=== PATIENT | male | born 1995 | race Caucasian/White ===

== ENCOUNTER → 2017-03-12 | Outpatient (CLI) | payer OTHER ==
--- NOTE | 2017-03-12 20:06 | DIAGNOSTIC IMAGING REPORT ---
RIGHT CLAVICLE CLINICAL HISTORY: Right clavicle injury. COMPARISON: None FINDINGS: Alignment of the right acromioclavicular and glenohumeral joints is anatomic. No acute fracture of the right clavicle is identified. IMPRESSION: No acute fracture of the right clavicle. Electronically signed by: Felipe Tan M.D. 03/12/2017 8:04 PM Dictated Date/Time: 03/12/2017 8:03 PM
--- NOTE | 2017-03-12 20:07 | DIAGNOSTIC IMAGING REPORT ---
CHEST 2 VIEWS ROUTINE CLINICAL HISTORY: Right clavicle injury. COMPARISON STUDY: No previous studies for comparison. FINDINGS: There is no pneumothorax or pleural effusion. Lungs are clear. Cardiac size is normal. Mediastinal contours are normal. There is no evidence of pulmonary edema. IMPRESSION: No acute cardiopulmonary findings. Electronically signed by: Felipe Tan M.D. 03/12/2017 8:05 PM Dictated Date/Time: 03/12/2017 8:05 PM
== END | disposition home or self-care (01) ==
LOC: C.RAD 19:13
PROVIDERS: ATTEND Family Medicine
DX: S49.91XA Unspecified injury of right shoulder and upper arm, initial encounter (principal); X58.XXXA Exposure to other specified factors, initial encounter

== ENCOUNTER 2017-08-12 03:39 | Emergency (ER) | payer OTHER ==
[~2017-08-12] VITALS: Ht 177.8 cm; Wt 88.0 kg
[2017-08-12 03:42] VITALS: TEMP 36.6; Ht 177.8 cm; Wt 88.0 kg
[2017-08-12] MEDS ORDERED: METOCLOPRAMIDE HCL INJ 5 MG/ML 2 ML VIAL IV STA (03:48)
[2017-08-12] MEDS ORDERED: DiphenhydrAMINE HCL 50 MG/ML VIAL IV STA (03:48)
[2017-08-12] MEDS ORDERED: SODIUM CHLORIDE 0.9% 1000ML 1,000 ML IV STA (04:00)
[2017-08-12 04:10] LABS: BASO % 0.5 %; BASO ABS # 0.04 K/uL (0-0.2); EOS % 1.8 %; EOS ABS # 0.16 K/uL (0-0.5); HEMATOCRIT 46.1 % (42-52); IG# 0.08 K/uL (0.00-0.02); LYMPH % 21.9 %; LYMPH ABS # 1.91 K/uL (1.2-3.4); MEAN CELL VOLUME 90.6 fL (80-100); MEAN CORPUSCULAR HEMOGLOBIN 31.4 pg (25-34); MEAN CORPUSCULAR HGB CONC 34.7 g/dl (32-36); MEAN PLATELET VOLUME 9.7 fL (7.4-10.4); MONO % 10.9 %; MONO ABS # 0.95 K/uL (0.11-0.59); NEUT ABS # 5.58 K/uL (1.4-6.5); PLATELET COUNT 260 K/uL (130-400); RED CELL DISTRIBUTION WIDTH CV 12.6 % (11.5-14.5); RED CELL DISTRIBUTION WIDTH SD 41.9 fL (36.4-46.3); WHITE BLOOD COUNT 8.72 K/uL (4.8-10.8)
[2017-08-12 04:28] LABS: CALCIUM 9.3 mg/dl (8.5-10.1); CREATININE 1.15 mg/dl (0.60-1.40); POTASSIUM 3.8 mmol/L (3.5-5.1)
--- NOTE | 2017-08-12 05:28 | EMERGENCY ROOM VISIT NOTE ---
History First contact with patient: 03:45 Chief Complaint: HEADACHE Stated Complaint: MIGRAINE,NAUSEA History of Present Illness The patient is a 21 year old male who presents to the Emergency Room with complaints of headache with nausea for the past few hours. Patient states he is getting ready for bed and started with a frontal headache described as throbbing, ranging in severity currently 7 out of 10. Nothing makes it better or worse. He feels nauseous with photophobia. No history of migraines. Patient drinks of alcohol yesterday but nothing tonight. No drugs tonight. No recent head injury. 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 No family history of aneurysm or sudden . No history of migraines. Patient denies chest pain, dyspnea, localized weakness, vision problems, cold symptoms, sore throat, neck stiffness , dizziness. Review of Systems An 10 system review of systems was completed with positives and pertinent negatives listed in the HPI. Past Medical/Surgical History None Social History Smoking Status: Never Smoker Alcohol Use: occasionally Drug Use: none Marital Status: in relationship Occupation Status: [employer] student Current/Historical Medications No Active Prescriptions or Reported Meds Physical Exam Vital Signs Date Time Temp Pulse Resp B/P (MAP) Pulse Ox O2 Delivery O2 Flow Rate FiO2 08/12/17 03:42 36.6 63 18 154/98 98 Room Air Physical Exam VITALS: Vitals are noted on the nurse's note and reviewed by myself. Vital signs hypertensive GENERAL: Pleasant male ambulating without difficulties, in no acute distress, nondiaphoretic, well-developed well-nourished. SKIN: The skin was without rashes, erythema, edema, or bruising. There is no tenting of the skin. Capillary reflex less than 2 seconds. HEAD: Normocephalic atraumatic. EARS: External auditory canals clear, tympanic membranes pearly mcmahan without erythema or effusion bilaterally. EYES: Pupils equal round and reactive to light and accommodation. Conjunctivae without injection, sclerae without icterus. Extraocular movements intact. NOSE: Patent, turbinates without inflammation or discharge. No sinus tenderness. MOUTH: Mucous membranes moist. Pharynx without erythema or exudate. Uvula midline. Airway patent. Tongue does not deviate. NECK: Supple without nuchal rigidity. No lymphadenopathy. No thyromegaly. Cervical spine is nontender. No JVD. HEART: Regular rate and rhythm without murmurs gallops or rubs. LUNGS: Clear to auscultation bilaterally without wheezes, rales or rhonchi. No dullness to percussion. No retractions or accessory muscle use. ABDOMEN: Positive bowel sounds x 4. Normal tympanic percussion. Soft, nontender, without masses or organomegaly. Kirk sign negative. No guarding or rebound tenderness. MUSCULOSKELETAL: No muscle atrophy, erythema, or edema noted. NEURO: Patient was alert and oriented to person place and time. Normal sensation to light and sharp touch. Cranial nerves II through XII grossly intact. No prior drift. Salivary exam intact. No focal neurological deficits. Medical Decision & Procedures Laboratory Results 08/12/17 04:01 Red Blood Count 5.09, Mean Corpuscular Volume 90.6, Mean Corpuscular Hemoglobin 31.4, Mean Corpuscular Hemoglobin Concent 34.7, Mean Platelet Volume 9.7, Neutrophils (%) (Auto) 64.0, Lymphocytes (%) (Auto) 21.9, Monocytes (%) (Auto) 10.9, Eosinophils (%) (Auto) 1.8, Basophils (%) (Auto) 0.5, Neutrophils # (Auto ) 5.58, Lymphocytes # (Auto) 1.91, Monocytes # (Auto) 0.95, Eosinophils # (Auto ) 0.16, Basophils # (Auto) 0.04 08/12/17 04:01 Test 08/12/17 04:01 White Blood Count 8.72 K/uL (4.8-10.8) Red Blood Count 5.09 M/uL (4.7-6.1) Hemoglobin 16.0 g/dL (14.0-18.0) Hematocrit 46.1 % (42-52) Mean Corpuscular Volume 90.6 fL (80-100) Mean Corpuscular Hemoglobin 31.4 pg (25-34) Mean Corpuscular Hemoglobin Concent 34.7 g/dl (32-36) Platelet Count 260 K/uL (130-400) Mean Platelet Volume 9.7 fL (7.4-10.4) Neutrophils (%) (Auto) 64.0 % Lymphocytes (%) (Auto) 21.9 % Monocytes (%) (Auto) 10.9 % Eosinophils (%) (Auto) 1.8 % Basophils (%) (Auto) 0.5 % Neutrophils # (Auto) 5.58 K/uL (1.4-6.5) Lymphocytes # (Auto) 1.91 K/uL (1.2-3.4) Monocytes # (Auto) 0.95 K/uL (0.11-0.59) Eosinophils # (Auto) 0.16 K/uL (0-0.5) Basophils # (Auto) 0.04 K/uL (0-0.2) RDW Standard Deviation 41.9 fL (36.4-46.3) RDW Coefficient of Variation 12.6 % (11.5-14.5) Immature Granulocyte % (Auto) 0.9 % Immature Granulocyte # (Auto) 0.08 K/uL (0.00-0.02) Anion Gap 7.0 mmol/L (3-11) Est Creatinine Clear Calc Drug Dose 113.5 ml/min Estimated GFR () 104.8 Estimated GFR (Non- 90.5 BUN/Creatinine Ratio 15.3 (10-20) Calcium Level 9.3 mg/dl (8.5-10.1) Medications Administered Medications (Trade) Dose Ordered Sig/Max Route Start Time Stop Time Status Last Admin Dose Admin Metoclopramide HCl (Reglan Inj) 10 mg NOW STAT IV 08/12/17 03:48 08/12/17 03:50 DC 08/12/17 03:48 10 MG Diphenhydramine HCl (Benadryl Inj) 12.5 mg NOW STAT IV 08/12/17 03:48 08/12/17 03:50 DC 08/12/17 03:48 12.5 MG Sodium Chloride 1,000 ml @ 999 mls/hr Q1H1M STAT IV 08/12/17 04:00 08/12/17 05:00 DC 08/12/17 04:00 999 MLS/HR ED Course Prior records/ancillary studies reviewed. Additional history obtained from girlfriend. Triage Nursing notes reviewed. The patient's history was concerning for headache. Differential diagnosis: Etiologies such as migraine headache, meningitis, sinusitis, CO exposure, ICH, SAH, infection, tumor, headache, sinus thrombosis, arterial dissection, as well as others were entertained. Physical examination findings: As above. Non-focal. ER treatment provided: Reglan, Benadryl, IV fluids On reassessment the patient felt better. Diagnostics interpreted by me: The labs revealed no worrisome leukocytosis or electrolyte abnormality Imaging studies: CT HEAD: No acute intracranial findings. Suspect some fluid/debris in the nasopharyngeal region. Possible prominence of adenoids. Possible crowding of right cerebellar tonsil at the foramen magnum. Cannot exclude Chiari malformation. Follow-up per final report. Radiologist: Martin Brown M.D. This appears to be consistent with migraine. Patient was neurovascularly and neurologically intact. No signs of meningitis. He is well-appearing. He is advised to rest, stay well-hydrated and to follow-up health services in a few days here in the ER sooner for headache, fevers, lethargy, weakness, worsening signs or symptoms or as needed. By the evaluation outlined above emergent etiologies such as meningitis, sinusitis, CO exposure, ICH, SAH, infection, temporal arteritis, tumor, sinus thrombosis, arterial dissection, as well as others were deemed relatively unlikely. Patient was advised to follow-up outpatient for further imaging of the brain as needed. The pt informed about the findings as listed above. All questions were answered and pleased with the treatment. Return instructions were outlined and the patient was discharged in stable condition. Case reviewed with my attending Referral: The patient was referred back to their primary care physician for follow-up in 2 to 3 days for a recheck of the current condition. Medical Decision As above Medication Reconcilliation Current Medication List: was personally reviewed by me Blood Pressure Screening Patient's blood pressure: Elevated blood pressure Blood pressure disposition: Elevated BP felt to be situational Impression Primary Impression: Migraine Departure Information Dispostion Home / Self-Care Condition GOOD Prescriptions No Active Prescriptions or Reported Meds Referrals No Doctor, Assigned (PCP) Patient Instructions My [facility] Additional Instructions DO NOT drive, drink alcohol, operate machinery, or perform dangerous activities today. You were given medications in the ER that can affect your ability to safely function or operate a vehicle. Recommend routine MRI of the brain for further evaluation for migraines and possible Chiari malformation. Rest today in a quiet, peaceful, dark environment and get a full 8-10 hrs of sleep tonight. Avoid loud noises, smoke/smoking, alcohol, bright lights, stress, or physical exertion today to minimize the chance the headache may return. Continue current medications. Ibuprofen(Motrin, Advil) may be used for fever or pain. Use 600mg every six hours as needed. Take with food. Avoid using more than 2400mg in a 24 hour period. Do not use 2400mg per day for more than three consecutive days without physician direction. Prolonged inappropriate use can lead to stomach upset or ulcers. (AND/OR) Acetaminophen(Tylenol) may be used for fever or pain. Use 1000mg every six hours as needed. Avoid using more than 3000mg in a 24 hour period. Return to the ER for passing out, worsening headache, vision problems, neck stiffness/pain, fevers, vomiting, worsening of your condition, or as needed. Follow up with your primary physician and/or a neurologist in 2-3 days for a recheck of your current condition. Problem Qualifiers Primary Impression: Migraine Migraine type: without aura Status migrainosus presence: without status migrainosus Intractability: not intractable Qualified Codes: G43.009 - Migraine without aura, not intractable, without status migrainosus
[2017-08-12 05:42] VITALS: BP 117/65; PULSE 74; O2SAT 98
--- NOTE | 2017-08-12 06:37 | DIAGNOSTIC IMAGING REPORT ---
CT OF THE HEAD WITHOUT CONTRAST CLINICAL HISTORY: Headache. COMPARISON STUDY: No previous studies for comparison. CT DOSE: 537.48 mGy.cm TECHNIQUE: Helical axial images of the head were obtained without IV contrast. Automated exposure control was utilized for the study. A dose lowering technique was utilized adhering to the principles of ALARA. FINDINGS: No acute intracranial hemorrhage, midline shift or mass effect is present. Brain volume is normal. Ventricular system is normal. Basilar cisterns are patent. There are no extra-axial collections. Barr-white differentiation is maintained. There are no findings to suggest acute dural sinus thrombosis or acute territorial infarct. There are no significant calvarial abnormalities. Visualized portions of the sinuses and mastoid air cells are clear. IMPRESSION: No acute intracranial findings. Electronically signed by: Felipe Tan M.D. 08/12/2017 6:35 AM Dictated Date/Time: 08/12/2017 6:33 AM
== END 2017-08-12 05:43 | disposition home or self-care (01) ==
LOC: C.EDB 03:39
DX: G43.009 Migraine without aura, not intractable, without status migrainosus (principal)